=== PATIENT | male | born 1975 | race Caucasian/White ===

== ENCOUNTER 2016-08-21 22:50 | Emergency (ER) | payer BC, OTHER ==
--- NOTE | 2016-08-22 00:25 | PDOC ---
History of Present Illness - General History Source: Patient Exam Limitations: No Limitations - History of Present Illness Initial Comments: 08/22/16 01:14 The patient is a 41 year old male, with significant past medical history of diabetes, who presents today complaining of 7 days of right sided rib pain. 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 Over the past week, the pain has gradually worsened and he wanted to be sure that he did not fracture a rib. He has taken tylenol and motrin with mild relief. Denies SOB, Cough. Denies fever, chills, nausea, vomiting. Denies abdominal pain. Denies any other trauma or injuries. Allergies: none reported PCP- Dr. Kalpesh Soto <Michaelle Lobo - Last Filed: 08/22/16 01:14> <Aleah Layne - Last Filed: 08/23/16 04:35> - General Chief Complaint: Injury Stated Complaint: INJURED RIB Time Seen by Provider: 08/22/16 00:15 Past History <Michaelle Lobo - Last Filed: 08/22/16 01:14> <Aleah Layne - Last Filed: 08/23/16 04:35> - Past Medical History Allergies/Adverse Reactions: Allergies Allergy/AdvReac Type Severity Reaction Status Date / Time No Known Allergies Allergy Verified 08/22/16 00:23 Home Medications: Ambulatory Orders Methocarbamol [Robaxin -] 500 mg PO TID #30 tablet 08/22/16 Review of Systems - Review of Systems Able to Perform ROS?: Yes Comments:: 08/22/16 01:15 GENERAL/CONSTITUTIONAL: No fever or chills. No weakness. HEAD, EYES, EARS, NOSE AND THROAT: No change in vision. No ear pain or discharge. No sore throat. CARDIOVASCULAR: No chest pain or shortness of breath. RESPIRATORY: No cough, wheezing, or hemoptysis. GASTROINTESTINAL: No nausea, vomiting, diarrhea or constipation. GENITOURINARY: No dysuria, frequency, or change in urination. MUSCULOSKELETAL: +right sided rib pain. No joint or muscle swelling or pain. No neck or back pain. SKIN: No rash NEUROLOGIC: No headache, vertigo, loss of consciousness, or change in strength/ sensation. ENDOCRINE: No increased thirst. No abnormal weight change. HEMATOLOGIC/LYMPHATIC: No anemia, easy bleeding, or history of blood clots. ALLERGIC/IMMUNOLOGIC: No hives or skin allergy. <Michaelle Lobo - Last Filed: 08/22/16 01:14> *Physical Exam - Vital Signs Last Vital Signs Temp Pulse Resp BP Pulse Ox 98.2 F 80 14 127/86 99 08/22/16 00:23 08/22/16 00:23 08/22/16 00:23 08/22/16 00:23 08/22/16 00:23 - Physical Exam Comments: 08/22/16 01:15 GENERAL: Awake, alert, and fully oriented, in no acute distress HEAD: No signs of trauma EYES: PERRLA, EOMI, sclera anicteric, conjunctiva clear ENT: Auricles normal inspection, hearing grossly normal, nares patent, oropharynx clear without exudates. Moist mucosa NECK: Normal ROM, supple, no lymphadenopathy, JVD, or masses LUNGS: Breath sounds equal, clear to auscultation bilaterally. No wheezes, and no crackles HEART: Regular rate and rhythm, normal S1 and S2, no murmurs, rubs or gallops ABDOMEN: Soft, nontender, normoactive bowel sounds. No guarding, no rebound. No masses EXTREMITIES: Normal range of motion, no edema. No clubbing or cyanosis. No cords, erythema, or tenderness NEUROLOGICAL: Cranial nerves II through XII grossly intact. Normal speech, normal gait SKIN: Warm, Dry, normal turgor, no rashes or lesions noted. <Michaelle Lobo - Last Filed: 08/22/16 01:14> Medical Decision Making - Medical Decision Making 08/23/16 04:32 Pt comes with right sided rib pain after leaning over the middle area of his car. Pt was treated with analgesics and muscle relaxants. He will be sent home with the same. Pt has a small 8th rib fracture. No abdominal pain. <Aleah Layne - Last Filed: 08/23/16 04:35> *DC/Admit/Observation/Transfer - Attestations Scribe Attestion: 08/22/16 01:15 Documentation prepared by CATY Coon, acting as medical radiation tech for Aleah Layne MD. <Michaelle Lboo - Last Filed: 08/22/16 01:14> - Discharge Dispostion Admit: No <Aleah Layne - Last Filed: 08/23/16 04:35> Diagnosis at time of Disposition: Musculoskeletal pain - Discharge Dispostion Disposition: HOME Condition at time of disposition: Stable - Prescriptions Prescriptions: Methocarbamol [Robaxin -] 500 mg PO TID #30 tablet - Referrals Referrals: Kalpesh Soto MD [Primary Care Provider] - - Patient Instructions Printed Discharge Instructions: DI for Musculoskeletal Pain - Post Discharge Activity Work/School Note: Back to Work
[2016-08-22 00:43] VITALS: BP 127/86; PULSE 80; TEMP 98.2; BMI 41.9
[2016-08-22] MEDS ORDERED: OXYCODONE/APAP 5/325MG COMBO TABLET PO ONE ×2 (01:07)
[2016-08-22] MEDS ORDERED: IBUPROFEN 600 MG TABLET (FP) PO ONE ×2 (01:07→01:12)
[2016-08-22] MEDS ORDERED: OXYCODONE/APAP 5/325MG COMBO TABLET ONE (01:12)
--- NOTE | 2016-08-22 16:24 | PDOC ---
Patient Follow-up (Call Back) - Post ED Follow - Up Condition at time of discharge: Stable Disposition at time of original discharge: HOME Reason for Call Back: Radiology - Disposition Additional Instructions/Notes: Discussed XR results with patient. He states that the pain is manageable. He has pain with cough, but able to take a deep breath without difficulty. I counseled him that pain control is important to prevent pna. If any SOB, cp, or any other concerns, he should return to the ED right away.
--- NOTE | 2016-08-22 17:05 | PDOC ---
*Physical Exam - Vital Signs Last Vital Signs Temp Pulse Resp BP Pulse Ox 98.2 F 80 14 127/86 99 08/22/16 00:23 08/22/16 00:23 08/22/16 00:23 08/22/16 00:23 08/22/16 00:23 ED Treatment Course - Medications Given in the ED: ED Medications Discontinued Medications Generic Name Dose Route Start Last Admin Trade Name Reg PRN Reason Stop Dose Admin Ibuprofen 600 mg 08/22/16 01:07 08/22/16 01:17 Motrin - PO 08/22/16 01:08 600 mg ONCE ONE Administration Oxycodone/Acetaminophen 1 combo 08/22/16 01:07 08/22/16 01:18 Percocet 5/325 - PO 08/22/16 01:08 1 combo ONCE ONE Administration Medical Decision Making - Medical Decision Making 08/22/16 17:04 pt called and said he was supposed to get a prescription for a muscle relaxant. I called [facility] pharmacy and they said no RX for robaxin had been received from any [facility] pharmacy.I did see that Dr Layne had an active RX for robaxin. Therefore I spoke with the pharmacist and the prescription was for ROBAXIN 500mg TID , thirty tablets ordered at the [facility] pharmacy 08/22/16 17:38 *DC/Admit/Observation/Transfer Diagnosis at time of Disposition: Musculoskeletal pain - Discharge Dispostion Disposition: HOME Condition at time of disposition: Stable - Prescriptions Prescriptions: Methocarbamol [Robaxin -] 500 mg PO TID #30 tablet - Referrals Referrals: Kalpesh Soto MD [Primary Care Provider] - - Patient Instructions Printed Discharge Instructions: DI for Musculoskeletal Pain - Post Discharge Activity Work/School Note: Back to Work
== END 2016-08-22 02:25 | disposition home or self-care (01) ==
LOC: JER 22:50
DX: S29.8XXA Other specified injuries of thorax, initial encounter (principal); S21.101A Unspecified open wound of right front wall of thorax without penetration into thoracic cavity, initial encounter; V48.0XXA Car driver injured in noncollision transport accident in nontraffic accident, initial encounter; Y92.488 Other paved roadways as the place of occurrence of the external cause; Y93.89 Activity, other specified
CPT/HCPCS: 71101-TC-RT; 99281-25